=== PATIENT | female | born 1940 | race Caucasian/White ===

== ENCOUNTER 2018-03-30 10:49 | Emergency (ER) | payer OTHER ==
[~2018-03-30] VITALS: Ht 160 cm; Wt 59.0 kg
[2018-03-30] MEDS ORDERED: PROVENTIL HFA6.7 GM (11:15)
== END 2018-03-30 12:54 | disposition home or self-care (01) ==
LOC: ER 10:49
DX: H92.02 Otalgia, left ear (principal); H61.22 Impacted cerumen, left ear